=== PATIENT | male | born 1975 | race Caucasian/White ===

== ENCOUNTER 2016-08-22 16:29 | Emergency (ER) | payer OTHER | END 2016-08-22 17:27 | disposition home or self-care (01) | LOC: ER 16:29 | DX: M25.571 Pain in right ankle and joints of right foot (principal); F17.220 Nicotine dependence, chewing tobacco, uncomplicated; Z79.899 Other long term (current) drug therapy; Z88.0 Allergy status to penicillin; Z88.5 Allergy status to narcotic agent ==